=== PATIENT | male | born 1980 | race Caucasian/White ===

== ENCOUNTER 2017-07-27 20:09 | Emergency (ER) | payer SELFPAY ==
--- NOTE | 2017-07-27 20:21 | ED Physician Documentation ---
Sore Throat/Dental Pain - HISTORIAN Historian: patient - HPI Chief Complaint: Sore Throat Onset: days ago (2 days) Associated Symptoms: fever (low grade), chills. denies: unable to swallow Further Comments: yes - ROS CONST: no problems - PAST HX Past History: none Allergies/Adverse Reactions: Allergies Allergy/AdvReac Type Severity Reaction Status Date / Time pseudoephedrine Allergy Severe Anaphylaxis Verified 07/27/17 20:37 Home Medications: Ambulatory Orders Medication Instructions Recorded Amoxicillin [Trimox] 500 mg PO TID #30 capsule 07/27/17 NK [NK] 07/27/17 - SOCIAL HX Smoking History: non-smoker, secondhand Alcohol Use: occasionally Drug Use: none - FAMILY HX Family History: Yes - REVIEWED ASSESSMENTS Nursing Assessment Reviewed: Yes Vitals Reviewed: Yes Sore throat Physical Exam - EXAM General Appearance: alert, mild distress Head/Neck: head nml inspection, trachea midline, thyroid nml, cervical lymphadenopathy (left) Eyes: eyes nml inspection Mouth/Throat: lips nml, gums nml, pharynx nml, voice nml, no air way problems, pharyngeal erythema, tonsillar exudate (mild), tonsillar swelling Ear/Nose: nml inspection, TM erythema Respiratory: no resp. distress, breath sounds nml, respiratory distress CVS: reg. rate & rhythm, heart sounds nml, murmur Skin: warm/dry Neuro/Psych: oriented x3, mood/affect nml Discharge Clincal Impression: Strep pharyngitis Referrals: Primary Doctor,No [Primary Care Provider] - 2 Days Home Medications: Ambulatory Orders Amoxicillin [Trimox] 500 mg PO TID #30 capsule 07/27/17 NK [NK] 07/27/17 Condition: Stable Disposition: 01 HOME, SELF-CARE Decision to Admit: NO Date of Decison to Admit: 07/27/17 Decision Time: 20:39
[2017-07-27] MEDS ORDERED: AMOXICILLIN 500 MG CAPSULE PO ONE (20:35)
[2017-07-27 20:43] VITALS: BP 145/94
== END 2017-07-27 20:44 | disposition home or self-care (01) ==
LOC: ED 20:09
DX: J02.0 Streptococcal pharyngitis (principal)
CPT/HCPCS: 99283